=== PATIENT | female | born 1965 | race Caucasian/White ===

== ENCOUNTER 2023-01-01 12:35 | Inpatient (IN) | payer MEDICARE, OTHER ==
[~2023-01-01] VITALS: Ht 167.6 cm; Wt 57.2 kg
[2023-01-01 13:04] LABS: BASOPHILS # (AUTO) 0.1 K/UL (0.0-0.2); BASOPHILS % (AUTO) 1.5 % (0.0-2.0); EOSINOPHILS # (AUTO) 0.2 K/uL (0.0-0.7); EOSINOPHILS % (AUTO) 1.9 % (0.0-7.0); HEMATOCRIT 35.8 % (31.2-41.9); HEMOGLOBIN 12.2 g/dL (10.9-14.3); LYMPHOCYTES # (AUTO) 1.6 K/uL (0.8-4.8); LYMPHOCYTES % (AUTO) 18.9 % (20.5-51.5); MEAN CORPUSCULAR HEMOGLOBIN 29.9 uug (24.7-32.8); MEAN CORPUSCULAR HGB CONC 34 g/dL (32.3-35.6); MEAN CORPUSCULAR VOLUME 87.5 fL (75.5-95.3); MONOCYTES # (AUTO) 0.5 K/uL (0.1-1.30); MONOCYTES % (AUTO) 6.3 % (0.0-11.0); NEUTROPHILS # (AUTO) 6.2 K/uL (1.8-8.9); NEUTROPHILS % (AUTO) 71.4 % (38.5-71.5); PLATELET COUNT (AUTO) 263 K/uL (179-408); RED BLOOD CELL COUNT(AUTO) 4.09 MIL/uL (3.63-4.92); RED CELL DISTRIBUTION WIDTH 13.1 % (12.3-17.7); WHITE BLOOD COUNT (AUTO) 8.7 K/uL (3.8-11.8)
[2023-01-01] MEDS ORDERED: LITH300T2 PO (13:11)
[2023-01-01] MEDS ORDERED: DULO60CA45 PO (13:11)
[2023-01-01] MEDS ORDERED: TRAZ-257 PO (13:11)
[2023-01-01] MEDS ORDERED: BISA10SU12 RC (13:11)
[2023-01-01] MEDS ORDERED: ACET325T53 PO (13:11)
[2023-01-01] MEDS ORDERED: ARIP10TA9 PO (13:11)
[2023-01-01] MEDS ORDERED: ATOR40TA PO (13:11)
[2023-01-01] MEDS ORDERED: LACTAID PO (13:11)
[2023-01-01] MEDS ORDERED: MAGN400O6 PO (13:11)
[2023-01-01 13:16] LABS: ALANINE AMINOTRANSFERASE 14 U/L (14-59); ALBUMIN 3.5 g/dL (3.4-5.0); ALKALINE PHOSPHATASE 111 U/L (50-136); ASPARTATE AMINOTRANSFERASE 9 U/L (15-37); BILIRUBIN,DIRECT < 0.1 mg/dL (0.0-0.2); BILIRUBIN,TOTAL 0.4 mg/dL (0.2-1.0); CALCIUM 8.8 mg/dL (8.5-10.1); CARBON DIOXIDE 27 mmol/L (21-32); CHLORIDE 102 mmol/L (98-107); CREATININE 0.8 mg/dL (0.6-1.3); GLUCOSE 96 mg/dL (74-106); POTASSIUM 3.4 mmol/L (3.5-5.1); SODIUM SERUM 140 mmol/L (136-145); TOTAL PROTEIN, SERUM 6.3 g/dL (6.4-8.2); UREA NITROGEN, BLOOD 10 mg/dL (7-18)
[2023-01-01 13:25] LABS: ETHANOL < 3 MG/DL (0-10)
[2023-01-01 13:26] LABS: ACETAMINOPHEN < 2.0 ug/mL (10-30)
[2023-01-01 13:30] LABS: DIFFERENTIAL COMMENT 1
[2023-01-01 13:34] LABS: *BILIRUBIN,URIN NEGATIVE (NEGATIVE); *BLOOD, URINE TRACE (NEGATIVE); *CLARITY,URINE CLEAR (CLEAR); *COLOR,URINE YELLOW (YELLOW); *KETONES,URINE NEGATIVE (NEGATIVE); *PROTEIN,URINE NEGATIVE (NEGATIVE); *UROBILINOGEN,URINE 0.2 E.U./dl (NORMAL); LEUKOCYTE ESTERASE ,URINE NEGATIVE (NEGATIVE); NITRITE, URINE NEGATIVE (NEGATIVE); PH,URINE 6.5 (5.0-8.0); UGLUCOSE NEGATIVE (NEGATIVE)
[2023-01-01 14:22] LABS: *AMPHETAMINE, URINE NEGATIVE (NEGATIVE); *BARBITURATE, URINE NEGATIVE (NEGATIVE); *BENZODIAZEPINE, URINE NEGATIVE (NEGATIVE); *CANNABINOID, URINE NEGATIVE (NEGATIVE); *COCCAINE, URINE NEGATIVE (NEGATIVE); *OPIATE, URINE NEGATIVE (NEGATIVE); *PHENCYCLIDINE SCREEN,URINE NEGATIVE (NEGATIVE); FENTANYL, URINE NEGATIVE (NEGATIVE)
[2023-01-01 14:59] LABS: BACTERIA,URINE FEW /HPF (NONE SEEN); SQUAMOUS EPITHELIAL CELL,UR FEW /HPF (NONE SEEN); WBC,URINE 0-3 /HPF (0-3)
[2023-01-01 16:00] VITALS: BP 101/68; O2SAT 97
[2023-01-01] MEDS ORDERED: ACETAMINOPHEN 325 MG TABLET PO PRN (16:30)
[2023-01-01] MEDS ORDERED: BLOOD SUGAR DIAGNOSTIC 1 EACH STRIP VI ONE (16:30)
[2023-01-01] MEDS ORDERED: MAG HYDROX/AL HYDROX/SIMETH 30 ML LIQUID UDC PO PRN (16:30)
[2023-01-01] MEDS ORDERED: MAGNESIUM HYDROXIDE 30 ML LIQUID UDC PO PRN (16:30)
[2023-01-01] MEDS ORDERED: LORAZEPAM 0.5 MG TABLET PO PRN (16:30)
[2023-01-01 17:10] VITALS: BP 123/63; TEMP 98.2; O2SAT 98
[2023-01-01] MEDS ORDERED: BISACODYL 10 MG SUPP.RECT RC PRN (17:30)
[2023-01-01 20:18] VITALS: BP 118/64; TEMP 98.1; O2SAT 96
[2023-01-01] MEDS: LITHIUM CARBONATE 150 MG CAPSULE PO SCH (20:50)
[2023-01-01] MEDS: ATORVASTATIN 40 MG TABLET PO SCH (20:50)
[2023-01-01] MEDS: TRAZODONE 50 MG TABLET PO SCH (20:50)
[2023-01-02 08:14] VITALS: BP 119/69; TEMP 98.2; O2SAT 100
[2023-01-02 08:43] LABS: ALBUMIN 3.5 g/dL (3.4-5.0); BILIRUBIN,TOTAL 0.5 mg/dL (0.2-1.0); CREATININE 0.7 mg/dL (0.6-1.3); POTASSIUM 3.9 mmol/L (3.5-5.1); TOTAL PROTEIN, SERUM 6.3 g/dL (6.4-8.2)
[2023-01-02] MEDS: ARIPIPRAZOLE 5 MG TABLET PO SCH ×2 (09:33→17:43)
[2023-01-02 15:35] VITALS: BP 135/70; TEMP 98.2; O2SAT 99
[2023-01-02] MEDS: OXYMETAZOLINE NASAL 0.05% 15 ML SPRAY NS PRN (15:50)
[2023-01-02] MEDS: DULOXETINE 60 MG CAPSULE.DR PO SCH (17:43)
[2023-01-02 20:11] VITALS: BP 119/60; TEMP 98.1; O2SAT 98
[2023-01-02] MEDS: LITHIUM CARBONATE 150 MG CAPSULE PO SCH (20:30)
[2023-01-02] MEDS: TRAZODONE 50 MG TABLET PO SCH (20:30)
[2023-01-02] MEDS: ATORVASTATIN 40 MG TABLET PO SCH (20:30)
[2023-01-03 08:06] VITALS: BP 133/66; TEMP 98.5; O2SAT 97
[2023-01-03] MEDS: ARIPIPRAZOLE 5 MG TABLET PO SCH ×2 (08:50→16:27)
[2023-01-03] MEDS: OXYMETAZOLINE NASAL 0.05% 15 ML SPRAY NS PRN (13:05)
[2023-01-03 16:14] VITALS: BP 134/70; TEMP 97.9; O2SAT 98
[2023-01-03] MEDS: DULOXETINE 60 MG CAPSULE.DR PO SCH (16:27)
[2023-01-03 20:00] VITALS: BP 114/62; TEMP 98.1; O2SAT 96
[2023-01-03] MEDS: ATORVASTATIN 40 MG TABLET PO SCH (20:46)
[2023-01-03] MEDS: LITHIUM CARBONATE 150 MG CAPSULE PO SCH (20:46)
[2023-01-03] MEDS: TRAZODONE 50 MG TABLET PO SCH (20:46)
[2023-01-04 08:16] VITALS: BP 114/70; TEMP 98.2; O2SAT 99
[2023-01-04] MEDS: ARIPIPRAZOLE 5 MG TABLET PO SCH ×2 (08:52→16:45)
[2023-01-04] MEDS: DULOXETINE 60 MG CAPSULE.DR PO SCH (16:45)
[2023-01-04 16:56] VITALS: BP 128/76; TEMP 98; O2SAT 98
[2023-01-04 20:00] VITALS: BP 117/62; TEMP 98.2; O2SAT 95
[2023-01-04] MEDS: TRAZODONE 50 MG TABLET PO SCH (20:46)
[2023-01-04] MEDS: LITHIUM CARBONATE 150 MG CAPSULE PO SCH (20:46)
[2023-01-04] MEDS: ATORVASTATIN 40 MG TABLET PO SCH (20:46)
[2023-01-05 08:14] VITALS: BP 122/69; TEMP 98; O2SAT 98
[2023-01-05] MEDS: ARIPIPRAZOLE 5 MG TABLET PO SCH ×2 (08:58→16:36)
[2023-01-05 15:17] VITALS: BP 90/66; TEMP 98.2; O2SAT 96
[2023-01-05] MEDS: DULOXETINE 60 MG CAPSULE.DR PO SCH (16:36)
[2023-01-05 20:00] VITALS: BP 138/83; TEMP 98; O2SAT 95
[2023-01-05] MEDS: LITHIUM CARBONATE 150 MG CAPSULE PO SCH (20:59)
[2023-01-05] MEDS: TRAZODONE 50 MG TABLET PO SCH (20:59)
[2023-01-05] MEDS: ATORVASTATIN 40 MG TABLET PO SCH (20:59)
[2023-01-06 07:30] VITALS: BP 111/67; TEMP 98; O2SAT 98
[2023-01-06] MEDS: ARIPIPRAZOLE 5 MG TABLET PO SCH ×2 (08:30→16:29)
[2023-01-06 15:40] VITALS: BP 112/66; TEMP 98; O2SAT 99
[2023-01-06] MEDS: DULOXETINE 60 MG CAPSULE.DR PO SCH (16:29)
[2023-01-06] MEDS: ATORVASTATIN 40 MG TABLET PO SCH ×2 (16:29→20:41)
[2023-01-06] MEDS: OXYMETAZOLINE NASAL 0.05% 15 ML SPRAY NS PRN (16:31)
[2023-01-06 20:00] VITALS: BP 99/54; TEMP 98; O2SAT 95
[2023-01-06] MEDS: TRAZODONE 50 MG TABLET PO SCH (20:41)
[2023-01-06] MEDS: LITHIUM CARBONATE 150 MG CAPSULE PO SCH (20:41)
[2023-01-06] MEDS: TEMAZEPAM 7.5 MG CAPSULE PO PRN (22:17)
[2023-01-07 08:03] VITALS: BP 120/68; TEMP 98; O2SAT 98
[2023-01-07] MEDS: ARIPIPRAZOLE 5 MG TABLET PO SCH ×2 (08:18→16:19)
[2023-01-07] MEDS: OXYMETAZOLINE NASAL 0.05% 15 ML SPRAY NS PRN ×2 (13:24→17:53)
[2023-01-07 16:19] VITALS: BP 99/57; TEMP 98; O2SAT 99
[2023-01-07] MEDS: DULOXETINE 60 MG CAPSULE.DR PO SCH (16:19)
[2023-01-07 20:00] VITALS: BP 107/59; TEMP 97.8; O2SAT 95
[2023-01-07] MEDS: ATORVASTATIN 40 MG TABLET PO SCH (20:23)
[2023-01-07] MEDS: TRAZODONE 50 MG TABLET PO SCH (20:23)
[2023-01-07] MEDS: LITHIUM CARBONATE 150 MG CAPSULE PO SCH (20:23)
[2023-01-07] MEDS: TEMAZEPAM 7.5 MG CAPSULE PO PRN (21:44)
[2023-01-08 08:04] VITALS: BP 112/63; TEMP 98; O2SAT 96
[2023-01-08] MEDS: ARIPIPRAZOLE 5 MG TABLET PO SCH ×2 (08:22→17:25)
[2023-01-08 15:53] VITALS: BP 130/72; TEMP 98.2; O2SAT 98
[2023-01-08] MEDS: DULOXETINE 60 MG CAPSULE.DR PO SCH (17:25)
[2023-01-08] MEDS: OXYMETAZOLINE NASAL 0.05% 15 ML SPRAY NS PRN (17:44)
[2023-01-08 20:01] VITALS: BP 110/66; TEMP 98.1; O2SAT 97
[2023-01-08] MEDS: LITHIUM CARBONATE 150 MG CAPSULE PO SCH (20:03)
[2023-01-08] MEDS: ATORVASTATIN 40 MG TABLET PO SCH (20:03)
[2023-01-08] MEDS: TRAZODONE 50 MG TABLET PO SCH (20:03)
[2023-01-09] MEDS: TEMAZEPAM 7.5 MG CAPSULE PO PRN (01:48)
[2023-01-09 07:30] VITALS: BP 100/64; TEMP 98.2; O2SAT 99
[2023-01-09] MEDS: ARIPIPRAZOLE 5 MG TABLET PO SCH ×2 (08:34→16:49)
[2023-01-09 15:46] VITALS: BP 105/62; TEMP 98; O2SAT 96
[2023-01-09] MEDS: DULOXETINE 60 MG CAPSULE.DR PO SCH (16:49)
[2023-01-09 20:13] VITALS: BP 112/64; TEMP 98.1; O2SAT 96
[2023-01-09] MEDS: TRAZODONE 50 MG TABLET PO SCH (21:04)
[2023-01-09] MEDS: LITHIUM CARBONATE 150 MG CAPSULE PO SCH (21:04)
[2023-01-09] MEDS: ATORVASTATIN 40 MG TABLET PO SCH (21:04)
[2023-01-10 07:47] VITALS: BP 117/67; TEMP 98; O2SAT 98
[2023-01-10] MEDS: ARIPIPRAZOLE 5 MG TABLET PO SCH ×2 (08:12→16:53)
[2023-01-10 16:14] VITALS: BP 119/74; TEMP 98.1; O2SAT 98
[2023-01-10] MEDS: DULOXETINE 60 MG CAPSULE.DR PO SCH (16:53)
[2023-01-10 20:00] VITALS: BP 101/60; TEMP 97.6; O2SAT 97
[2023-01-10] MEDS: LITHIUM CARBONATE 150 MG CAPSULE PO SCH (20:58)
[2023-01-10] MEDS: ATORVASTATIN 40 MG TABLET PO SCH (20:58)
[2023-01-10] MEDS: TRAZODONE 50 MG TABLET PO SCH (20:58)
[2023-01-11 08:19] VITALS: BP 141/84; TEMP 98.1; O2SAT 98
[2023-01-11] MEDS: ARIPIPRAZOLE 5 MG TABLET PO SCH ×2 (09:00→17:47)
[2023-01-11] MEDS: OXYMETAZOLINE NASAL 0.05% 15 ML SPRAY NS PRN (13:03)
[2023-01-11 16:29] VITALS: BP 129/75; TEMP 98.3; O2SAT 98
[2023-01-11] MEDS: DULOXETINE 60 MG CAPSULE.DR PO SCH (17:47)
[2023-01-11 19:54] VITALS: BP 120/70; TEMP 98.1; O2SAT 98
[2023-01-11] MEDS: ATORVASTATIN 40 MG TABLET PO SCH (21:55)
[2023-01-11] MEDS: LITHIUM CARBONATE 150 MG CAPSULE PO SCH (21:55)
[2023-01-11] MEDS: TRAZODONE 50 MG TABLET PO SCH (21:55)
[2023-01-12 07:57] VITALS: BP 128/65; TEMP 98.2; O2SAT 98
[2023-01-12] MEDS: ARIPIPRAZOLE 5 MG TABLET PO SCH ×2 (08:28→16:53)
[2023-01-12] MEDS: OXYMETAZOLINE NASAL 0.05% 15 ML SPRAY NS PRN (10:53)
[2023-01-12 16:07] VITALS: BP 113/66; TEMP 98.3; O2SAT 98
[2023-01-12] MEDS: DULOXETINE 60 MG CAPSULE.DR PO SCH (16:53)
[2023-01-12 20:07] VITALS: BP 133/64; TEMP 98.2; O2SAT 98
[2023-01-12] MEDS: LITHIUM CARBONATE 150 MG CAPSULE PO SCH (20:17)
[2023-01-12] MEDS: ATORVASTATIN 40 MG TABLET PO SCH (20:17)
[2023-01-12] MEDS: TRAZODONE 50 MG TABLET PO SCH (20:19)
[2023-01-13] MEDS: ARIPIPRAZOLE 5 MG TABLET PO SCH (08:49)
[2023-01-13 09:46] VITALS: BP 120/72; TEMP 98.2; O2SAT 98
== END 2023-01-13 15:15 | DRG 885 ==
LOC: ER 12:35 → GPS 15:20
PROVIDERS: ADMIT Psychiatry & Neurology Psychosomatic Medicine; ATTEND Internal Medicine
DX: F31.9 Bipolar disorder, unspecified (principal); R45.851 Suicidal ideations; R62.7 Adult failure to thrive; Z68.20 Body mass index [BMI] 20.0-20.9, adult; Z91.51 Personal history of suicidal behavior; E87.6 Hypokalemia; E78.5 Hyperlipidemia, unspecified; G62.9 Polyneuropathy, unspecified; G89.29 Other chronic pain; F41.9 Anxiety disorder, unspecified; M19.90 Unspecified osteoarthritis, unspecified site; Z88.5 Allergy status to narcotic agent; Z91.011 Allergy to milk products; Z79.899 Other long term (current) drug therapy
CPT/HCPCS: 36415; 70030-TC; 71045; 85025; 93005; G0480